=== PATIENT | male | born 1955 | race Caucasian/White ===

== ENCOUNTER 2018-03-18 16:32 | Emergency (ER) | payer BC ==
[~2018-03-18] VITALS: Ht 188 cm; Wt 95.3 kg
[~2018-03-18 16:32] MED LIST: CHILDREN'S50 MG/1.24 PO; MULTIVITAMINS; NORCO 5-325 TA1 EACH PO; OMEPRAZOLE20 MG PO; PHENERGAN 25 MG25 M1; SENNA
[2018-03-18] MEDS ORDERED: LANSOPRAZOLE15 MG PO (16:42)
[2018-03-18] MEDS ORDERED: PREDNISONE 20 M20 MG PO (16:57)
[2018-03-18] MEDS ORDERED: BACTRIM DS TAB1 EACH PO (16:57)
== END 2018-03-18 17:16 | disposition home or self-care (01) ==
LOC: ER 16:32
DX: S20.361A Insect bite (nonvenomous) of right front wall of thorax, initial encounter (principal); K21.9 Gastro-esophageal reflux disease without esophagitis; K22.70 Barrett's esophagus without dysplasia; Z88.1 Allergy status to other antibiotic agents; Z88.8 Allergy status to other drugs, medicaments and biological substances; W57.XXXA Bitten or stung by nonvenomous insect and other nonvenomous arthropods, initial encounter; Y93.89 Activity, other specified; Y92.89 Other specified places as the place of occurrence of the external cause; Y99.8 Other external cause status